=== PATIENT | female | born 1940 | race Caucasian/White ===

== ENCOUNTER 2017-02-21 14:23 | Inpatient (IN) | payer MEDICARE, OTHER ==
[2017-02-21] MEDS: Acetaminophen/oxyCODONE 325-5 MG Tab PO PRN ×2 (17:27→23:46)
[2017-02-21] MEDS: metFORMIN 500 MG Tab PO SCH (17:28)
[2017-02-21] MEDS: Cyclobenzaprine 10 MG Tab PO SCH ×2 (17:28→19:43)
[2017-02-21] MEDS: Enoxaparin 40 MG/0.4 ML Syringe SUBCUT SCH (17:28)
[2017-02-21] MEDS: Ezetimibe 10 MG Tab PO SCH (19:43)
[2017-02-21] MEDS: Docusate Sodium 100 MG Cap PO SCH (19:43)
[2017-02-21] MEDS: Calcium Carbonate/Vitamin D3 1250 MG-200 Unit Tab PO SCH (19:44)
[2017-02-21] MEDS: Acetaminophen 500 MG Tab PO SCH (19:44)
--- NOTE | 2017-02-21 21:03 | HP ---
CHIEF COMPLAINT: Postoperative from a lumbar spinal stenosis surgery L2 through L3, PLIF by Dr. Agosto on 02/17. HISTORY OF PRESENT ILLNESS: This is a 76-year-old woman, who had back pain and leg numbness, was affecting her gait. She underwent surgery. She felt one day like the numbness was just a little bit better, however, she states at this point, it is hard to tell. She had some severe pain in the back a couple nights ago, but so far it is improved. She states this is harder than her other back surgery, otherwise, she has been breathing well. No cough. She has had a bowel movement. The patient had some trouble with low blood pressures after surgery, but after her Zanaflex was discontinued and she was placed on Flexeril, this improved. She is not taking any blood pressure medications currently. She did have some blood loss anemia after surgery, probably some hemodilution from her fluid boluses as well and her discharging hemoglobin was stable around 9. PAST MEDICAL HISTORY: Diabetes, well controlled with diabetic neuropathy, not on long-term insulin. Rheumatoid arthritis. Ascending aortic dilation. Cerebral aneurysm nonruptured previous surgery for that. Chronic left-sided low back pain with sciatica. Chronic kidney disease, stage III. Degenerative disk disease of the lumbar spine. Diverticulosis. Systolic heart murmur. Hypercalcemia. Hyperlipidemia. Osteoarthritis. Osteoporosis on Prolia, last dose in 11/2016. Polymyalgia rheumatica. Primary hyperparathyroidism. Spinal stenosis in the lumbar region with neurogenic claudication. Previous hysterectomy. Previous parathyroidectomy. PAST SURGICAL HISTORY: Previous brain surgery. Cataract extraction. Previous foot surgery. Bilateral knee replacement in 1999. Minimally invasive spine surgery L3, L4, and L5 fusion in 2005. SOCIAL HISTORY: The patient is . She lives at home with her . She is a nonsmoker. Nondrinker. FAMILY HISTORY: Not obtained. ALLERGIES: Statins. MEDICATION: List is reviewed and she was discharged on Lovenox 40 mg daily for another 7 days. Percocet 5/325 every 4 to 6 hours as needed for pain. Methotrexate 6 tablets once a week of the 2.5 mg dose, but she was instructed to wait at least 2 weeks before restarting it. Metformin 1000 in the morning 500 in the evening, may start on discharge. Folic acid 2 mg daily. Zetia 10 mg at bedtime. Tylenol 500 b.i.d. Amoxicillin as needed with dental work. Aspirin 81 mg daily. Calcium and D two times a day. Vitamin D 2000 units daily. B12 1000 mcg daily. Flexeril 5 mg t.i.d. Prolia every 6 months. Colace 100 mg in the evening. REVIEW OF SYSTEMS: General: She has had no fever, no chills. HEENT: No sore throat. Cardiac: No chest pain. Respiratory: No trouble breathing. Abdominal: No abdominal pain, nausea, or vomiting currently. Otherwise, all systems reviewed and found to be negative unless otherwise stated. PHYSICAL EXAMINATION: Vital signs: Weight 89.2, temperature 98.1, pulse 96, blood pressure 149/76, respiratory rate 16, and O2 of 100% on room air. General: She is in no acute distress. Heart: Regular rate and rhythm with murmur. Lungs: Sounds are clear to auscultation bilaterally without crackles or wheezes. Abdomen: Positive bowel sounds. Soft and nontender. Extremities: Warm and dry. She has 2+ edema to her legs extending up to her knee. She has puffiness also noted to her hands. Mental status: She is alert and orientated x3. Renal function was actually below baseline at [place] around one, so she is able to restart metformin. ASSESSMENT: 1. Postoperative on 02/17 for a L3-4 posterior lumbar interbody fusion with fusion extension by Dr. Agosto for spinal stenosis and neurogenic claudication. 2. Diabetes, well controlled with neuropathy, not requiring insulin. 3. Chronic kidney disease, stable. 4. Diastolic heart failure. Concern prior to admission her proBNP was negative, she was not on Lasix, she did receive significant fluids, if blood pressure remains elevated we will give her a small dose of Lasix. 5. Leg swelling. 6. DVT prophylaxis, she is on Lovenox for 7 days. 7. Rheumatoid arthritis, she may restart her methotrexate in 3 to 4 weeks, minimum of at least 2 weeks. PLAN: At this point, the patient is admitted for swing bed cares. PT and OT will evaluate her. I expect her to go home sometime in the next week. For her postoperative anemia, we are also going to repeat hemoglobin on Thursday along with platelets for monitoring due to her Lovenox. MKA: 02/21/2017 16:31:01 MODL: 02/21/2017 20:55:12 /[id number]
[2017-02-22] MEDS: Acetaminophen/oxyCODONE 325-5 MG Tab PO PRN ×4 (04:45→23:48)
[2017-02-22] MEDS: Enoxaparin 40 MG/0.4 ML Syringe SUBCUT SCH (07:33)
[2017-02-22] MEDS: Polyethylene Glycol 3350 Powder 17 GM Packet PO SCH (07:33)
[2017-02-22] MEDS: Cyclobenzaprine 10 MG Tab PO SCH ×3 (07:34→19:47)
[2017-02-22] MEDS: Cyanocobalamin (Vitamin B12) 1,000 MCG Tab PO SCH (07:34)
[2017-02-22] MEDS: Cholecalciferol (Vitamin D3) 1,000 Unit Tab PO SCH (07:34)
[2017-02-22] MEDS: Folic Acid 1 MG Tab PO SCH (07:34)
[2017-02-22] MEDS: Acetaminophen 500 MG Tab PO SCH ×2 (07:34→19:46)
[2017-02-22] MEDS: Calcium Carbonate/Vitamin D3 1250 MG-200 Unit Tab PO SCH ×2 (07:34→19:47)
[2017-02-22] MEDS: Aspirin 81 MG Tab.EC PO SCH (07:34)
[2017-02-22] MEDS: metFORMIN 500 MG Tab PO SCH ×2 (07:34→17:17)
[2017-02-22] MEDS: Ezetimibe 10 MG Tab PO SCH (19:46)
[2017-02-22] MEDS: Docusate Sodium 100 MG Cap PO SCH (19:46)
[2017-02-23] MEDS: Acetaminophen/oxyCODONE 325-5 MG Tab PO PRN ×3 (03:57→21:37)
[2017-02-23] MEDS: Cholecalciferol (Vitamin D3) 1,000 Unit Tab PO SCH (08:38)
[2017-02-23] MEDS: Cyanocobalamin (Vitamin B12) 1,000 MCG Tab PO SCH (08:38)
[2017-02-23] MEDS: Aspirin 81 MG Tab.EC PO SCH (08:38)
[2017-02-23] MEDS: Folic Acid 1 MG Tab PO SCH (08:38)
[2017-02-23] MEDS: metFORMIN 500 MG Tab PO SCH ×2 (08:38→17:42)
[2017-02-23] MEDS: Polyethylene Glycol 3350 Powder 17 GM Packet PO SCH (08:38)
[2017-02-23] MEDS: Enoxaparin 40 MG/0.4 ML Syringe SUBCUT SCH (08:39)
[2017-02-23] MEDS: Acetaminophen 500 MG Tab PO SCH ×2 (08:39→19:44)
[2017-02-23] MEDS: Calcium Carbonate/Vitamin D3 1250 MG-200 Unit Tab PO SCH ×2 (08:39→19:44)
[2017-02-23] MEDS: Cyclobenzaprine 10 MG Tab PO SCH ×3 (08:39→19:44)
[2017-02-23] MEDS: Docusate Sodium 100 MG Cap PO SCH (19:44)
[2017-02-23] MEDS: Ezetimibe 10 MG Tab PO SCH (19:44)
[2017-02-24 06:35] VITALS: BP 138/65
[2017-02-24] MEDS: Acetaminophen/oxyCODONE 325-5 MG Tab PO PRN (06:35)
[2017-02-24] MEDS: Polyethylene Glycol 3350 Powder 17 GM Packet PO SCH (07:51)
[2017-02-24] MEDS: Cholecalciferol (Vitamin D3) 1,000 Unit Tab PO SCH (07:53)
[2017-02-24] MEDS: Cyanocobalamin (Vitamin B12) 1,000 MCG Tab PO SCH (07:53)
[2017-02-24] MEDS: Calcium Carbonate/Vitamin D3 1250 MG-200 Unit Tab PO SCH (07:53)
[2017-02-24] MEDS: metFORMIN 500 MG Tab PO SCH (07:53)
[2017-02-24] MEDS: Folic Acid 1 MG Tab PO SCH (07:54)
[2017-02-24] MEDS: Aspirin 81 MG Tab.EC PO SCH (07:54)
[2017-02-24] MEDS: Cyclobenzaprine 10 MG Tab PO SCH ×2 (07:55→12:21)
[2017-02-24] MEDS: Acetaminophen 500 MG Tab PO SCH (07:56)
[2017-02-24] MEDS: Enoxaparin 40 MG/0.4 ML Syringe SUBCUT SCH (07:58)
--- NOTE | 2017-02-25 02:01 | DISCH ---
PRIMARY DISCHARGE DIAGNOSIS: Postoperative from a lumbar spinal stenosis surgery L2 through L3 posterior lumbar interbody fusion by Dr. Agosto on 02/17/2017. SECONDARY DISCHARGE DIAGNOSES: 1. Well controlled diabetes type 2 with neuropathy, not on long-term insulin use. 2. Rheumatoid arthritis. 3. Chronic kidney disease, stage III. 4. Degenerative disk disease of the lumbar spine. 5. Systolic heart murmur. 6. Hypercalcemia. 7. Hyperlipidemia. 8. Osteoarthritis. 9. Osteoporosis. 10.Polymyalgia rheumatica. 11.History of primary hyperparathyroidism. REASON FOR ADMISSION: On the date of admission, this 76-year-old female was transferred from [place] for further therapies after back surgery. The patient was doing well. Her pain was under improved control. She only required 1 Percocet during her stay. She was on scheduled Flexeril which had been started by Neurosurgery, however, she was getting hypotensive from Zanaflex, so it was changed. She had no blood pressure issues while she was here. She restarted on her home metformin and was tolerating that with blood sugars in the 130s to 150s. Otherwise, her hemoglobin was rechecked on 02/23/2017, it was 9.2, platelets were 214. She did continue on Lovenox 40 mg daily to complete a 1- week course on discharge for DVT prophylaxis. She was having a lot of leg and arm swelling and fluid retention. This seemed to improve prior to discharge. She was wearing RONY stockings. The patient did have 1 bowel movement here on 02/22/2017, but she has not had any since. OBJECTIVE: Vital Signs: Objectively, her temperature is 98, pulse 87, blood pressure 138/65, respiratory rate 18, and O2 97% on room air. General: She is in no acute distress. Heart: Regular rate and rhythm with murmur. Lungs: Sounds are clear to auscultation bilaterally without crackles or wheezes. Extremities: Warm and dry. She does have 1+ edema to both ankles and shins. It is taut, not pitting. Mental Status: Alert and oriented x3. DISCHARGE PLANS AND INSTRUCTIONS: Follow up with Dr. Woo on 03/20/2017 as planned for diabetes recheck. She has a followup with Neurosurgery with x-rays in about another 5 weeks. She will follow all restrictions from [place] for wound care, lifting and bending. She will keep other medications as same as before surgery except Lovenox shots will be needed for another 3 days. Nurse will teach her how to do this, if she is unable, her daughter or granddaughter who is a nurse will come help. She may continue Tylenol for pain. She has been taking it twice daily. I did okay her to use it at least up to 3 times a day and no more than 6 pills per day. She will continue MiraLax and Colace for constipation. She will take Senna Plus or milk of Mag or use it suppository if needed. Otherwise, she will decrease her Flexeril to once daily at night until she runs out or she sees me for followup and she could take it during the day if needed. She will hold the methotrexate until the week of 03/16/2017 as long as her arthritis symptoms are not too severe. Outpatient PT is being arranged at [facility]. The patient declined home health. MKA: 02/24/2017 12:51:58 MODL: 02/25/2017 01:54:12 /[id number]
== END 2017-02-24 14:02 | disposition home or self-care (01) | DRG 561 ==
LOC: VM.MS 14:23
PROVIDERS: ADMIT Internal Medicine; ATTEND Internal Medicine
DX: Z47.89 Encounter for other orthopedic aftercare (principal); M79.89 Other specified soft tissue disorders; E11.40 Type 2 diabetes mellitus with diabetic neuropathy, unspecified; Z79.84 Long term (current) use of oral hypoglycemic drugs; M06.9 Rheumatoid arthritis, unspecified; G89.29 Other chronic pain; M54.40 Lumbago with sciatica, unspecified side; M47.896 Other spondylosis, lumbar region; E78.5 Hyperlipidemia, unspecified; E83.52 Hypercalcemia; N18.3 Chronic kidney disease, stage 3 (moderate); M81.0 Age-related osteoporosis without current pathological fracture; M35.3 Polymyalgia rheumatica; Z96.653 Presence of artificial knee joint, bilateral; Z88.8 Allergy status to other drugs, medicaments and biological substances; Z79.899 Other long term (current) drug therapy
CPT/HCPCS: 36415; 82962; 85025; 94760; 97110-GP; 97161-GP; 97165-GO; 97530-GP; A9270-GY; J1650

== ENCOUNTER 2018-09-15 07:44 | Emergency (ER) | payer MEDICARE, OTHER ==
[2018-09-15] MEDS ORDERED: Sodium Chloride 0.9% 10 ML Syringe FLUSH PRN (07:52)
[2018-09-15] MEDS ORDERED: Sodium Chloride 0.9% 1,000 ML IV ONE (07:55)
--- NOTE | 2018-09-15 08:06 | EDM.PDOC ---
ED HPI GENERAL MEDICAL PROBLEM - General Chief Complaint: Cardiovascular Problem Stated Complaint: chest and neck pain Time Seen by Provider: 09/15/18 07:52 Source of Information: Reports: Patient, EMS, Family History Limitations: Reports: No Limitations - History of Present Illness INITIAL COMMENTS - FREE TEXT/NARRATIVE: Patient presents with sudden onset of bilateral jaw and neck pain. Rates pain a 10/10. Denies chest pain. She denies abdominal pain, blood in urine or stool. Denies headache. Denies shortness of breath. She does have bilateral leg numbness but this is chronic for her. She also states she has some left sided arm weakness that is also not new. She does have a history of an aneurism clip to the brain. Denies any prior history of stroke or LA. Does have history of DM. Onset: Today, Sudden Duration: Intermittent Location: Reports: Neck Quality: Reports: Ache Severity: Severe Improves with: Reports: None Worsens with: Reports: None Associated Symptoms: Reports: No Other Symptoms - Related Data Allergies Allergy/AdvReac Type Severity Reaction Status Date / Time [id number]-Sbw-Wts Reductase Allergy Muscle Verified 02/21/17 12:09 Inhibitor Aches Home Meds: Home Meds Acetaminophen 500 mg PO BID 02/21/17 [History] Amoxicillin 2,000 mg PO ASDIRECTED PRN 02/21/17 [History] Aspirin [Ecotrin] 81 mg PO DAILY 02/21/17 [History] Calcium Carb & Citrate/Vit D3 [Citracal + D ER] 1 tab PO BID 02/21/17 [History] Cholecalciferol (Vitamin D3) [Vitamin D3] 2,000 units PO DAILY 02/21/17 [History ] Cyanocobalamin (Vitamin B-12) [Vitamin B-12] 1,000 mcg SL DAILY 02/21/17 [ History] Denosumab [Prolia] 60 mg SUBCUT Q6M 02/21/17 [History] Docusate Sodium 100 mg PO BEDTIME 02/21/17 [History] Ezetimibe 10 mg PO BEDTIME 02/21/17 [History] Folic Acid 2 mg PO DAILY 02/21/17 [History] metFORMIN [Glucophage] 1,000 mg PO DAILY 02/21/17 [History] metFORMIN [Glucophage] 500 mg PO WITHDINNER 02/21/17 [History] oxyCODONE HCl/Acetaminophen [oxyCODONE-Acetaminophen 5-325] 1 tab PO Q4H PRN [History] Cyclobenzaprine [Flexeril] 5 mg PO BEDTIME #30 tablet 02/24/17 [Rx] Enoxaparin Sodium [Lovenox] 40 mg SQ DAILY #3 dose 02/24/17 [Rx] Methotrexate 15 mg PO WEEKLY #0 02/24/17 [Rx] Polyethylene Glycol 3350 [MiraLAX] 17 gm PO DAILY #30 packet 02/24/17 [Rx] Past Medical History HEENT History: Reports: Cataract Cardiovascular History: Reports: Heart Murmur, High Cholesterol, Other (See Below) Other Cardiovascular History: ascending aorta dilation. cerbral aneurysm, nonruptured Gastrointestinal History: Reports: Diverticulosis, Other (See Below) Other Gastrointestinal History: postop nausea and vomiting Genitourinary History: Reports: Renal Disease Musculoskeletal History: Reports: Arthritis, Back Pain, Chronic, Osteoarthritis , Osteoporosis, RA, Other (See Below) Other Musculoskeletal History: degenerative disc disease, lumbar. leg pain, bilateral. polymyalgia rheumatica. spinal stenosis, lumbar region, with neurogenic claudication. L3-4-5 fusion Neurological History: Reports: Neuropathy, Diabetic, Other (See Below) Other Neuro History: brain surgery for aneurysm Endocrine/Metabolic History: Reports: Diabetes, Type II, Hyperparathyroidism - Past Surgical History HEENT Surgical History: Reports: Cataract Surgery Female Surgical History: Reports: Hysterectomy Endocrine Surgical History: Reports: Parathyroidectomy Musculoskeletal Surgical History: Reports: Knee Replacement, Other (See Below) Other Musculoskeletal Surgeries/Procedures:: lumbar fusion thoracic spine Social & Family History - Family History Family Medical History: Noncontributory - Caffeine Use Caffeine Use: Reports: Soda ED ROS GENERAL - Review of Systems Review Of Systems: See Below Constitutional: Reports: No Symptoms HEENT: Reports: No Symptoms Respiratory: Reports: No Symptoms Cardiovascular: Reports: No Symptoms Endocrine: Reports: No Symptoms GI/Abdominal: Reports: No Symptoms : Reports: No Symptoms Musculoskeletal: Reports: Neck Pain, Other (jaw pain, bilateral) Skin: Reports: No Symptoms Neurological: Reports: Tingling (bilateral lower extremitiy neuropathy) Psychiatric: Reports: No Symptoms Hematologic/Lymphatic: Reports: No Symptoms Immunologic: Reports: No Symptoms ED EXAM, GENERAL - Physical Exam Exam: See Below Exam Limited By: No Limitations General Appearance: Alert, WD/WN, Moderate Distress Eye Exam: Bilateral Eye: EOMI, Normal Inspection, PERRL Ears: Normal TMs Nose: Normal Inspection, Normal Mucosa, No Blood Throat/Mouth: Normal Inspection, Normal Lips, Normal Teeth, Normal Gums, Normal Oropharynx, Normal Voice, No Airway Compromise Head: Atraumatic, Normocephalic Neck: Normal Inspection, Supple, Non-Tender, Full Range of Motion Respiratory/Chest: No Respiratory Distress, Lungs Clear, Normal Breath Sounds, No Accessory Muscle Use, Chest Non-Tender Cardiovascular: Normal Peripheral Pulses, Regular Rate, Rhythm, No Edema, Systolic Murmur Peripheral Pulses: 1+: Posterior Tibial (L), Posterior Tibial (R), Dorsalis Pedis (L), Dorsalis Pedis (R) GI/Abdominal: Normal Bowel Sounds, Soft, Non-Tender, No Organomegaly, No Distention, No Abnormal Bruit, No Mass Back Exam: Normal Inspection, Full Range of Motion, NT Extremities: Normal Inspection, Normal Range of Motion, Non-Tender, Normal Capillary Refill, No Pedal Edema Neurological: Alert, Oriented, CN II-XII Intact, Normal Cognition, Normal Gait, Sensory/Motor Deficit (reduced sensation to bilateral lower legs) Psychiatric: Normal Affect, Normal Mood Skin Exam: Warm, Dry, Intact, Normal Color, No Rash Lymphatic: No Adenopathy Course - Orders/Labs/Meds Orders: Active Orders 24 hr Category Date Time Status Chest PE [Ang Chest] [CT] Stat Exams 09/15/18 09:00 Ordered D-DIMER QUANTITATIVE [COAG] Routine Lab 09/15/18 10:25 Received Sodium Chloride 0.9% [Saline Flush] Med 09/15/18 07:52 Active 10 ml FLUSH ASDIRECTED PRN Saline Lock Insert [OM.PC] Routine Oth 09/15/18 07:52 Ordered Medication Orders Sodium Chloride (Saline Flush) 10 ml FLUSH ASDIRECTED PRN PRN Reason: Keep Vein Open Labs: Laboratory Tests 09/15/18 09/15/18 09/15/18 Range/Units 08:10 08:10 08:10 WBC 7.0 (4.0-10.0) x10^3/uL RBC 3.74 L (4.00-5.50) x10^6/uL Hgb 11.7 L D (12.0-16.0) g/dL Hct 36.6 (33.0-47.0) % MCV 97.9 H (78.0-93.0) fL MCH 31.3 (26.0-32.0) pg MCHC 32.0 (32.0-36.0) g/dL RDW Coeff of Adrián 14.4 (10.0-15.0) % Plt Count 179 (130-400) x10^3/uL Neut % (Auto) 57.5 (50.0-80.0) % Lymph % (Auto) 35.2 (25.0-50.0) % Bennett % (Auto) 5.3 (2.0-11.0) % Eos % (Auto) 1.4 (0.0-4.0) % Baso % (Auto) 0.6 (0.2-1.2) % PT 10.7 (9.6-11.4) SEC INR 1.0 L (2.0-3.5) D-Dimer, Quantitative (<=0.58) mg/LFEU POC Sodium (138-146) mmol/L Sodium 141 (136-145) mmol/L POC Potassium (3.5-4.9) mmol/L Potassium 4.0 (3.5-5.1) mmol/L POC Chloride (98-109) mmol/L Chloride 102 (98-107) mmol/L Carbon Dioxide 30 (21-32) mmol/L POC Total CO2 (24-29) mmol/L Anion Gap 13.0 (10-20) mmol/L POC Anion Gap POC BUN (8-26) mg/dL BUN 34 H (7-18) mg/dL Creatinine 1.5 H (0.55-1.02) mg/dL POC Creatinine (0.6-1.3) mg/dL Est Cr Clr Drug Dosing TNP Estimated GFR (MDRD) 34 Glucose 183 H (74-106) mg/dL POC Glucose (70-105) mg/dL Calcium 10.1 (8.5-10.1) mg/dL Corrected Calcium 10.58 H (8.5-10.1) mg/dL Magnesium 1.7 L (1.8-2.4) mg/dL Total Bilirubin 0.4 (0.2-1.0) mg/dL AST 28 (15-37) U/L ALT 31 (14-59) U/L Alkaline Phosphatase 92 (46-116) U/L Creatine Kinase 46 (26-192) U/L POC Troponin I (0.00-0.08) ng/mL NT-Pro-B Natriuret Pep 335 (<=450) pg/mL Total Protein 6.8 (6.4-8.2) g/dL Albumin 3.4 (3.4-5.0) g/dL Globulin 3.4 Albumin/Globulin Ratio 1.00 TSH, Ultra Sensitive 3.188 (0.358-3.74) uIU/mL 09/15/18 09/15/18 09/15/18 Range/Units 08:10 08:15 10:31 WBC (4.0-10.0) x10^3/uL RBC (4.00-5.50) x10^6/uL Hgb (12.0-16.0) g/dL Hct (33.0-47.0) % MCV (78.0-93.0) fL MCH (26.0-32.0) pg MCHC (32.0-36.0) g/dL RDW Coeff of Adrián (10.0-15.0) % Plt Count (130-400) x10^3/uL Neut % (Auto) (50.0-80.0) % Lymph % (Auto) (25.0-50.0) % Bennett % (Auto) (2.0-11.0) % Eos % (Auto) (0.0-4.0) % Baso % (Auto) (0.2-1.2) % PT (9.6-11.4) SEC INR (2.0-3.5) D-Dimer, Quantitative 8.88 H (<=0.58) mg/LFEU POC Sodium 140 (138-146) mmol/L Sodium (136-145) mmol/L POC Potassium 4.1 (3.5-4.9) mmol/L Potassium (3.5-5.1) mmol/L POC Chloride 102 (98-109) mmol/L Chloride (98-107) mmol/L Carbon Dioxide (21-32) mmol/L POC Total CO2 21 L (24-29) mmol/L Anion Gap (10-20) mmol/L POC Anion Gap 23 POC BUN 35 H (8-26) mg/dL BUN (7-18) mg/dL Creatinine (0.55-1.02) mg/dL POC Creatinine 1.4 H (0.6-1.3) mg/dL Est Cr Clr Drug Dosing Estimated GFR (MDRD) Glucose (74-106) mg/dL POC Glucose 309 H (70-105) mg/dL Calcium (8.5-10.1) mg/dL Corrected Calcium (8.5-10.1) mg/dL Magnesium (1.8-2.4) mg/dL Total Bilirubin (0.2-1.0) mg/dL AST (15-37) U/L ALT (14-59) U/L Alkaline Phosphatase (46-116) U/L Creatine Kinase (26-192) U/L POC Troponin I 0.01 (0.00-0.08) ng/mL NT-Pro-B Natriuret Pep (<=450) pg/mL Total Protein (6.4-8.2) g/dL Albumin (3.4-5.0) g/dL Globulin Albumin/Globulin Ratio TSH, Ultra Sensitive (0.358-3.74) uIU/mL 09/15/18 Range/Units 10:40 WBC (4.0-10.0) x10^3/uL RBC (4.00-5.50) x10^6/uL Hgb (12.0-16.0) g/dL Hct (33.0-47.0) % MCV (78.0-93.0) fL MCH (26.0-32.0) pg MCHC (32.0-36.0) g/dL RDW Coeff of Adrián (10.0-15.0) % Plt Count (130-400) x10^3/uL Neut % (Auto) (50.0-80.0) % Lymph % (Auto) (25.0-50.0) % Bennett % (Auto) (2.0-11.0) % Eos % (Auto) (0.0-4.0) % Baso % (Auto) (0.2-1.2) % PT (9.6-11.4) SEC INR (2.0-3.5) D-Dimer, Quantitative (<=0.58) mg/LFEU POC Sodium (138-146) mmol/L Sodium (136-145) mmol/L POC Potassium (3.5-4.9) mmol/L Potassium (3.5-5.1) mmol/L POC Chloride (98-109) mmol/L Chloride (98-107) mmol/L Carbon Dioxide (21-32) mmol/L POC Total CO2 (24-29) mmol/L Anion Gap (10-20) mmol/L POC Anion Gap POC BUN (8-26) mg/dL BUN (7-18) mg/dL Creatinine (0.55-1.02) mg/dL POC Creatinine (0.6-1.3) mg/dL Est Cr Clr Drug Dosing Estimated GFR (MDRD) Glucose (74-106) mg/dL POC Glucose (70-105) mg/dL Calcium (8.5-10.1) mg/dL Corrected Calcium (8.5-10.1) mg/dL Magnesium (1.8-2.4) mg/dL Total Bilirubin (0.2-1.0) mg/dL AST (15-37) U/L ALT (14-59) U/L Alkaline Phosphatase (46-116) U/L Creatine Kinase (26-192) U/L POC Troponin I 0.04 (0.00-0.08) ng/mL NT-Pro-B Natriuret Pep (<=450) pg/mL Total Protein (6.4-8.2) g/dL Albumin (3.4-5.0) g/dL Globulin Albumin/Globulin Ratio TSH, Ultra Sensitive (0.358-3.74) uIU/mL Meds: Medications Generic Name Dose Route Start Last Admin Trade Name Freq PRN Reason Stop Dose Admin Sodium Chloride 10 ml 09/15/18 07:52 Saline Flush FLUSH ASDIRECTED PRN Keep Vein Open Discontinued Medications Generic Name Dose Route Start Last Admin Trade Name Freq PRN Reason Stop Dose Admin Sodium Chloride 1,000 mls @ 999 mls/hr 09/15/18 07:55 Normal Saline IV 09/15/18 08:55 ONETIME ONE Amiodarone HCl/Dextrose Confirm 09/15/18 10:22 Nexterone In Dextrose 360 Mg/200 Ml Administered 09/15/18 10:23 Dose 360 mg in 200 mls @ as directed .ROUTE .STK-MED ONE Iopamidol 100 ml 09/15/18 09:19 Isovue-300 (61%) IVPUSH 09/15/18 09:20 ONETIME ONE Ondansetron HCl 4 mg 09/15/18 08:24 Zofran IVPUSH 09/15/18 08:25 ONETIME ONE - Radiology Interpretation Free Text/Narrative:: CT negative for acute head process. CT cervical spine negative for acute process. Spondylosis seen to multiple cervical levels. Degenerative discs to C5-6-7 - Re-Assessments/Exams Free Text/Narrative Re-Assessment/Exam: 09/15/18 11:50 Patient presented this morning with complaints of acute neck and jaw pain. She denied any chest pain or shortness of breath. Initial CT of the head revealed an aneurysm clip but no acute bleeding or ischemic event. CT of the neck did show some degenerative changes as well as some spondylosis. Initial 12-lead EKG did not show any ST elevation or depression. With some of her more atypical symptoms we did decide to also do a 15-lead EKG which again did not show anything abnormal. Lab work was largely benign with the exception of a elevated d-dimer of 8.88. Troponin was negative, electrolytes were within normal limits, CBC was also normal. With the revelation of the elevated d-dimer I did decide to go forward with a CTA of the chest to rule out pulmonary embolus. While in the CT suite patient did stop breathing and a code was called. Patient very quickly appeared cyanotic from the neck up, however, did not remain this way. Color did reappear at approximately 10 am. [facility]YPIST at the [facility] did intubate the patient. She was given succinylcholine. The Sanjay device was attached after several rounds of CPR manually. This was attached for the entire time. Initial pulse readings showed PEA. Initial pulse checks did not indicate pulse activity. Apical heart sounds were not auscultated. Patient had a total of 8 doses of epinephrine, which had no effect. She continued to be in PEA; however she did resume a spontaneous pulse that could only be felt in the bilateral femoral arteries. Defibrillator did show at one point she was in ventricular tachycardia for this she did get a shock of 200 J. This seemed to spontaneously synch her pulse with the monitor however apical heart tones still were not auscultated. Sanjay was stopped at this time as she was pulsatile with corroborated defibrillator to pulsated femoral pulses. We did move her back over to the emergency room from the CT suite at this point we had been performing CODE STATUS for approximately 45 minutes. Once in the trauma room we did get a manual blood pressure of 60/20. E-Emergency was contacted at [phone]. We did also give her a 5000 unit heparin bolus and initiated a heparin drip at 25, 000 units per 500 mils she was also started on norepinephrine 4 mics per minute which was increased to 6 mics per minute. Did place an OG 18 Italian with good placement and residual gastric contents aspirated. Towards the end of the code she did have pulses that were in the 30s for which an dose of atropine was given. Sanjay was resumed. Patient began having PEA again and at that time in visiting with the family it was decide to withdraw lifesaving measures. Total CPR time of 1 hour 21 minutes. Departure - Departure Time of Disposition: 10:49 Disposition: 20 Preliminary Cause of *Q: Respiratory Failure (pulmonary embolus) Clinical Impression: Pulmonary embolism - Discharge Information *PRESCRIPTION DRUG MONITORING PROGRAM REVIEWED*: Not Applicable *COPY OF PRESCRIPTION DRUG MONITORING REPORT IN PATIENT BREANN: Not Applicable Forms: ED Department Discharge - Problem List & Annotations (1) Pulmonary embolism SNOMED Code(s): 14803546 Code(s): I26.99 - OTHER PULMONARY EMBOLISM WITHOUT ACUTE COR PULMONALE Status: Acute Priority: High Current Visit: Yes Qualifiers: Pulmonary embolism type: unspecified Chronicity: unspecified - My Orders Last 24 Hours: My Active Orders 09/15/18 07:52 Sodium Chloride 0.9% [Saline Flush] 10 ml FLUSH ASDIRECTED PRN Saline Lock Insert [OM.PC] Routine 09/15/18 09:00 Chest PE [Ang Chest] [CT] Stat 09/15/18 10:25 D-DIMER QUANTITATIVE [COAG] Routine - Assessment/Plan Last 24 Hours: My Active Orders 09/15/18 07:52 Sodium Chloride 0.9% [Saline Flush] 10 ml FLUSH ASDIRECTED PRN Saline Lock Insert [OM.PC] Routine 09/15/18 09:00 Chest PE [Ang Chest] [CT] Stat 09/15/18 10:25 D-DIMER QUANTITATIVE [COAG] Routine
[2018-09-15] MEDS ORDERED: Ondansetron 4 MG/2 ML SDV IVPUSH ONE (08:24)
[2018-09-15 08:47] LABS: CHLORIDE,CL 102 mmol/L (98-107); SODIUM,NA 141 mmol/L (136-145)
--- NOTE | 2018-09-15 08:48 | CT ---
[id number] CT/CT Head WO IV EXAM: NONCONTRAST HEAD CT INDICATION: Headache and jaw pain. COMPARISON: None. DISCUSSION: Prior left posterior fossa craniotomy with clipping or embolization material projecting over the expected location of the left vertebral artery. There is mild generalized atrophy and there are mild chronic small vessel ischemic changes. Chronic left thalamic lacunar infarct. No acute hemorrhage, mass effect, midline shift or hydrocephalus. No acute territorial infarct. Mild scattered paranasal sinus mucosal thickening. IMPRESSION: 1. No acute intracranial findings. 2. Mild paranasal sinus mucosal thickening. Luis Carlos Richards MD 09/15/18 0847 Thank you for allowing us to participate in the care of your patient.
--- NOTE | 2018-09-15 08:53 | CT ---
[id number] CT/CT Cervical Spine WO IV EXAM: NONCONTRAST CERVICAL SPINE CT INDICATION: Headache and jaw pain. COMPARISON: None. DISCUSSION: 2-3 mm degenerative spondylolisthesis C4-C5, C6-C7 and C7-T1. The vertebral body alignment is otherwise normal. No fracture or suspicious osseous lesion is identified. There is moderate to advanced degenerative disc disease at C5-C6, moderate changes at C6-C7 and mild to moderate changes at the remaining disc levels. Moderate to advanced facet degeneration scattered throughout the cervical spine. These changes most significantly contribute to central stenosis at C4-C5 and C5-C6 and foraminal stenosis on the right at C3-C4, on the left at C4-C5, and bilaterally at C5-C6. Surgical changes left posterior fossa as described on the dedicated head CT. IMPRESSION: 1. Multilevel cervical spondylosis as described. MRI could provide further evaluation of multilevel cervical central and foraminal stenoses. Luis Carlos Richards MD 09/15/18 [id number] Thank you for allowing us to participate in the care of your patient.
[2018-09-15] MEDS ORDERED: Iopamidol 612 MG/ML 100 ML Bottle IVPUSH ONE (09:19)
--- NOTE | 2018-09-15 10:13 | PCM.PRNOTE ---
- Free Text/Narrative Note: Intubation note: Was called to the CT scanner for a patient who became unresponsive while undergoing a CT scan to rule out PE. The patient is found to have no spontaneous respirations and was being Ambued by respiratory therapy. Patient was unresponsive to any stimuli. I was requested to intubate this patient. Ambu and intubation equipment was assembled. Laryngoscope was set up and checked. Patient was Ambued with 100% O2. The patient was prepped with ChloraPrep orally. Excess was suctioned. The patient was given succinylcholine 100 mg IV. This was allowed to circulate and the patient was Ambued throughout. Visualization using a laryngoscope was obtained. A 7.0 mm ID endotracheal tube was advanced using a rigid stylet. Oropharynx had minimal secretions.ET tube [ was pass passed through the glottic opening which was significantly anterior. Airway was grade 3. The tube was held in place and the stylet was removed. The tube was advanced to 20 cm at the teeth. Balloon was inflated with 10 mL of air. End tidal CO2 was positive at 16 mmHg. Breath sounds or positive over of all lung ibarra and negative over the epigastric area. Tube was secured with a bite block securing device. Ambu with 100% O2 was continued. Rocuronium 50 mg IV was given. Chest x-ray was ordered. Report given to nursing staff.
[2018-09-15 11:08] LABS: SODIUM,NA 140 mmol/L (138-146)
[2018-09-15 11:09] LABS: ANION GAP 21.1 mmol/L (10-20); CHLORIDE,CL 102 mmol/L (98-109)
[2018-09-15] MEDS ORDERED: Chlorhexidine Gluconate 0.12% Oral Rinse 15 ML Cup ONE (12:11)
== END 2018-09-15 10:49 | disposition expired ==
LOC: VM.ED 07:44
DX: I26.99 Other pulmonary embolism without acute cor pulmonale (principal); E11.40 Type 2 diabetes mellitus with diabetic neuropathy, unspecified; Z88.8 Allergy status to other drugs, medicaments and biological substances; Z79.82 Long term (current) use of aspirin; Z79.899 Other long term (current) drug therapy
CPT/HCPCS: 31500; 36415; 51702; 70450; 72125; 80053; 82550; 83735; 83880; 84443; 84484; 85025; 85379; 85610; 93005; 96361; 96365; 96374; 96375; 96376; 99291-25